=== PATIENT | female | born 1965 | race Caucasian/White ===

== ENCOUNTER → 2018-08-27 11:28 | Outpatient (CLI) | payer BC ==
[2016-02-07 09:27] VITALS: BMI 30.4
[~2018-08-27 11:28] MED LIST: ALEVE220 MG PO; HYDROCODONE-APA1 TAB PO; IBUPROFEN800 MG PO
== END | disposition home or self-care (01) ==
LOC: D.US 11:28
DX: I89.0 Lymphedema, not elsewhere classified (principal)